=== PATIENT | male | born 1950 | race Caucasian/White ===

== ENCOUNTER → 2024-06-16 09:47 | Outpatient (REF) | payer MEDICARE, SELFPAY ==
[2024-06-16 11:37] LABS: Prolactin 6.2 ng/ml (3.7-17.9)
[2024-06-18 09:56] LABS: % Free Testosterone 1.5 % (1.6-2.9); Free Testosterone 58 pg/mL (47-244); Sex Hormone Binding Globulin 47 nmol/L (19-76); Total Testosterone 388 ng/dL (300-720)
== END ==
LOC: REG 09:47
PROVIDERS: ATTENDING PHYSICIAN Family Medicine
DX: N32.89 Other specified disorders of bladder (principal); F52.21 Male erectile disorder; R68.82 Decreased libido
CPT/HCPCS: 36415; 84146; 84270; 84402; 84403

== ENCOUNTER 2025-07-31 16:29 | Emergency (ER) | payer MEDICARE, SELFPAY ==
[2025-07-31 16:31] VITALS: BP 166/74
[2025-07-31 19:00] VITALS: BP 139/84
[2025-07-31] MEDS: KEFLEX 500 MG PO (19:30)
[2025-07-31] MEDS: ADACEL 0.5 ML IM (19:30)
--- NOTE | 2025-08-01 00:22 | ED.GENMED ---
History of Present Illness
General
Chief Complaint: Skin Surface Trauma
Source: patient
Exam Limitations: none
Time Seen by Provider: 07/31/25 18:00
Nursing documentation reviewed up to this point in time: agreed with
History of Present Illness
History of Present Illness:
75 y/o M
R hand dominant
was using a miter saw today and accidentally cut his R 3rd finger dorsally long linear laceration
full ROM and sensation intact
bleeding controlled
tetanus unknown
no numbness/.tingling/weakness
Past History
Past History
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
Social History
Tobacco: Non-smoker
Alcohol: None
Review of Systems
Review of Systems
Allergies reviewed?: Yes
All Other Systems: Not applicable
Phy Exam
Physical Exam
Physical Exam:
GENERAL: Alert , in no apparent distress, comfortable at rest
HEAD: NCAT
CV: 2+ DP PULSES B/L
NEUROLOGICAL: Alert and oriented, no focal neuro deficits, , 5/5 strength, sensation intact, ambulation slight limp right leg
SKIN: Warm and dry, long linear laceration from the DIP of the right third finger dorsal aspect ulnar side all the way down to the MCP joint, I can see down to the bone but there is no visible tendon injury, patient has full range of motion, does
not look like the bone was nicked. He has normal distal sensation and strength.
MUSCULOSKELETAL: Finger laceration
PSYCH: Normal and appropriate interaction.
Course
Orders/Labs/Results
Orders:
Orders
07/31/25 18:01
CR Hand - Right Min 3 Views Urgent
Comment:
Reason For Exam: lac by saw
07/31/25 19:22
Cephalexin Monohydrate [Keflex] 500 mg PO NOW STA
Tetanus/Diphth/Acelpertussis [Adacel] 0.5 ml IM .ONCE ONE
Vital Signs
Initial and Last Documented VS:
Initial Vital Signs
Temp Pulse Resp BP Pulse Ox
36.3 C 65 20 166/74 92
07/31/25 16:31 07/31/25 16:31 07/31/25 16:31 07/31/25 16:31 07/31/25 16:31
Last Documented Vital Signs
Temp Pulse Resp BP Pulse Ox
36.3 C 84 20 139/84 99
07/31/25 16:31 07/31/25 19:00 07/31/25 19:00 07/31/25 19:00 07/31/25 19:00
Procedures
Laceration Closure
Right Dorsal Finger(s):
Size of Wound in cm: 8
Description of Wound Edges: ragged and flap-well vascularized
Preparation: cleaned with saline
Anesthesia: 1% Lidocaine
Revision/Debridement: minor revision and irrigate-direct pressure
Wound exploration: explored to base- no FB and no tendon involvement
Type of Closure: single layer closure
Skin Closure Material: 5-0 nylon
Number of sutures: 19
MDM/Problems Addressed
Differential Diagnosis Includes:
Hand laceration, open fracture, tendon injury
MDM/Problems Addressed:
74-year-old awaoa-auow-ldkozefe male laceration to the right dorsal hand accidentally with a miter saw earlier today around 3 PM. His tetanus is not up-to-date. His laceration was quite long and on the ulnar aspect of the right middle finger
dorsally, it looked as if it missed the bone, there is no obvious nerve injury, he has full strength and sensation and extension intact, there is no obvious extensor tendon injury. Patient's x-ray was independently reviewed and there is no foreign
body or bony fragment avulsions or fractures. The wound was anesthetized and irrigated profusely with normal saline before closure with sutures and it was dressed with a bulky dressing and splinted to the fifth finger and patient also had a finger
splint applied to prevent flexion at the MCP joint as well. Hand surgery follow-up recommended given the location of the wound but it does not seem like he has a tendon or nerve injury. Keflex empirically
*Pulse Oximetry
SaO2: 99
Oxygen Mode of Delivery: Room air
Patient hypoxic: no (99)
*Critical Care Note
Total Time (30-74mins, 75-104mins- exclusive of procedures): Not Applicable
ED Attending Note
-
Portions of this chart may have been created with voice recognition software.� Occasional wrong word or��sound alike� substitutions may have occurred due to the inherent limitations of voice recognition software.
Discharge Plan
Departure
Patient Disposition: Home (Routine Discharge)
Date of Disposition: 07/31/25
Time of Disposition: 19:23
Patient with high blood pressure during this ER visit?: No
Condition: Fair
Covid-19: Not Applicable
Discharge Problem:
Finger laceration
Instructions: Wound Care (DC), Laceration Repair With Stitches (DC)
Prescriptions:
New
cephalexin 500 mg capsule
500 mg PO Q8H Qty: 21 0RF
Referrals:
Harris Stevenson MD [Family Provider, Family Practice]
Kevin Isabel MD [Active, Orthopedics] - Follow up in 1 week
Activity Restrictions/Additional Instructions:
Your x-ray did not look like there were any signs of a bony injury. Giving you antibiotics just in case, take Keflex 3 times a day for 7 days to make sure this does not get infected. It also does not look like you had a tendon or nerve injury
however I highly encourage you to follow-up with hand surgery as an outpatient if you have any symptoms of limited mobility or numbness.
Your stitches need to be cleaned once a day starting tomorrow with mild soap and water, dressed with a bacitracin dressing or Band-Aids and then use the splint to avoid movement of your finger for couple of days. This will allow the skin to close.
After about 5 to 6 days you can take the splint off.
Make sure to get the stitches removed in about 10 days, you can see your family doctor or return for this. Return for any signs of infection like redness, swelling, drainage, severe pain, fever etc.
Interventions
Interventions:
*Risk Screen - Suicide Last Done: 07/31/25 16:34
*General Assessment Last Done: 07/31/25 16:34
*Neglect/Abuse Screening Last Done: 07/31/25 16:34
*ED COVID-19 Vaccine History Last Done: 07/31/25 16:34
*Nursing Disposition Last Done: 07/31/25 19:20
ED-Skin Assessment Last Done: 07/31/25 18:30
Discharge Date and Time
Discharge Date/Time: 07/31/25 20:27
Print Language: ESTONIAN
== END 2025-07-31 20:27 | disposition home or self-care (01) ==
LOC: EMR 16:29
PROVIDERS: EMERGENCY PHYSICIAN Emergency Medicine; FAMILY PHYSICIAN Family Medicine
DX: S61.212A Laceration without foreign body of right middle finger without damage to nail, initial encounter (principal); W27.0XXA Contact with workbench tool, initial encounter; Z23 Encounter for immunization
CPT/HCPCS: 99283; 12004; 90471; 73130; 90715